=== PATIENT | female | born 1970 | race Caucasian/White ===

== ENCOUNTER 2017-07-03 05:37 | Outpatient (CLI) | payer MEDICARE, MEDICAID ==
[~2017-07-03] VITALS: Ht 158.8 cm; Wt 151.6 kg
[2017-07-03] MEDS ORDERED: PREG300C PO (12:07)
[2017-07-03] MEDS ORDERED: HYDR-3812 PO (12:07)
[2017-07-03] MEDS ORDERED: GLIP10TA13 PO (12:07)
[2017-07-03] MEDS ORDERED: MMT17NA NS (12:07)
[2017-07-03] MEDS ORDERED: TRAZ100T92 PO (12:07)
[2017-07-03] MEDS ORDERED: SIMV40TA PO (12:07)
[2017-07-03] MEDS ORDERED: METO50TA15 PO (12:07)
[2017-07-03] MEDS ORDERED: DAPA10TA PO (12:07)
[2017-07-03] MEDS ORDERED: SERT100T PO (12:07)
[2017-07-03] MEDS ORDERED: RANI150T15 PO (12:07)
[2017-07-03] MEDS ORDERED: ALBU1.25 IH (12:07)
[2017-07-03] MEDS ORDERED: RIZA10TA23 PO (12:07)
[2017-07-03] MEDS ORDERED: LINA5TAB PO (12:07)
[2017-07-03] MEDS ORDERED: BUSP10TA95 PO (12:07)
[2017-07-03] MEDS ORDERED: RT-ALBUINH IH (12:07)
[2017-07-03] MEDS ORDERED: HYDR30TA PO (12:07)
[2017-07-03] MEDS ORDERED: ONDA4TAB8 SL (12:07)
[2017-07-03] MEDS ORDERED: CYCL10TA9 PO (12:07)
[2017-07-03] MEDS ORDERED: MONT10TA21 PO (12:07)
[2017-07-03] MEDS ORDERED: PRAZ2CAP2 PO (12:07)
== END 2017-07-03 12:23 | disposition home or self-care (01) ==
LOC: PREOP 05:37
PROVIDERS: ATTEND Orthopaedic Surgery
DX: Z01.818 Encounter for other preprocedural examination (principal); Z11.2 Encounter for screening for other bacterial diseases; T85.193A Other mechanical complication of implanted electronic neurostimulator, generator, initial encounter
CPT/HCPCS: 87081

== ENCOUNTER 2017-07-05 06:05 | Day surgery (SDC) | payer MEDICARE, MEDICAID ==
[~2017-07-05] VITALS: Ht 158.8 cm; Wt 151.6 kg
[~2017-07-05 06:05] MED LIST: ALBU1.25 IH; BUSP10TA95 PO; CYCL10TA9 PO; DAPA10TA PO; GLIP10TA13 PO; HYDR-3812 PO; HYDR30TA PO; LINA5TAB PO; METO50TA15 PO; MMT17NA NS; MONT10TA21 PO; ONDA4TAB8 SL; PRAZ2CAP2 PO; PREG300C PO; RANI150T15 PO; RIZA10TA23 PO; RT-ALBUINH IH; SERT100T PO; SIMV40TA PO; TRAZ100T92 PO
--- OUTSIDE RECORDS SUMMARY | 2017-07-05 06:22 | XMS REPORT ---
Author SOFÍA [facility] eClinicalWorks Address Unknown Phone Unavailable Care Team Providers Care Stone Rubber Name Role Phone SOFÍA MISHRA CP Unavailable Allergies, Adverse Reactions, Alerts Substance Reaction Event Type sulfa hives Non Drug Allergy penicillin hives Non Drug Allergy Problems Problem Type Condition Code Onset Dates Condition Status Assessment Dental caries K02.9 Active Assessment Dental examination Z01.20 Active Medications Medication Code System Code Instructions Start Date End Date Status Dosage Vitamin D [facility] [address]-67 not defined Hydrocodone-Ibuprofen [facility] [address]-98 not defined Metoprolol & Diet Manage Prod NDC 0 not defined Flexeril NDC 0 not defined Hysingla ER [facility] [address]-38 not defined Maxalt [facility] [address]-21 not defined Ventolin HFA [facility] [address]-49 not defined Effexor NDC 0 not defined Keppra [facility] [address]-78 not defined Lyrica [facility] [address]-66 not defined Tradjenta [facility] [address]-28 not defined Reglan [facility] [address]-64 not defined BusPIRone HCl [facility] [address]-99 not defined Procedures Procedure Coding System Code Date INTRAORL-PERIAPICAL 1 FILM 80996 CPT-4 D0220 Dec 03, 2015 EXTRAC ERUPTED TOOTH/EXPOSED ROOT CPT-4 D7140 Dec 03, 2015 LTD ORAL EVALUATION - PROBLEM FOCUS CPT-4 D0140 Dec 03, 2015 EXTRAC ERUPTED TOOTH/EXPOSED ROOT CPT-4 D7140 Dec 03, 2015 Vital Signs Date/Time: Dec 03, 2015 Blood Pressure Diastolic 69 mmHg Blood Pressure Systolic 127 mmHg Results No Known Results Summary Purpose eClinicalWorks Submission
[2017-07-05] MEDS ORDERED: FAMOTIDINE 20MG/2ML IV (PEPCID) IVP SCH (06:45)
[2017-07-05 07:00] VITALS: BP 153/106
[2017-07-05] MEDS ORDERED: CATHETER FLUSH 10 ML SYR IV PRN (07:00)
[2017-07-05] MEDS ORDERED: CLINDAMYCIN 600 MG/50 ML IVPB 50 ML IV ONE ×2 (07:00→08:30)
[2017-07-05] MEDS ORDERED: MIDAZOLAM 10 MG/2 ML (VERSED) VIAL ONE (07:06)
[2017-07-05] MEDS ORDERED: KETAMINE HCL 100 MG/ML 5 ML VIAL ONE (07:06)
[2017-07-05] MEDS ORDERED: proPOfol 200 MG/20 ML (DIPRIVAN) VIAL IV ONE (07:06)
[2017-07-05] MEDS ORDERED: BUP/EPI 0.5% 1:200,000 (SENSORCAINE) 30 ML VIAL ONE (07:09)
[2017-07-05] MEDS ORDERED: GENTAMICIN 40 MG/ML 2 ML INJ SDV ONE (07:09)
[2017-07-05] MEDS ORDERED: VANCOMYCIN 1000 MG/VIAL ONE (07:09)
[2017-07-05] MEDS ORDERED: ONDANSETRON 4 MG/2 ML (SDV) Z0FRAN ONE (08:13)
[2017-07-05] MEDS ORDERED: fentaNYL INJECTION 100 MCG/2 ML AMP IVP PRN (08:15)
[2017-07-05] MEDS ORDERED: LACTATED RINGERS 1,000 ML IV PRN (08:36)
[2017-07-05 08:45] VITALS: BP 121/72
[2017-07-05] MEDS ORDERED: BACI28.4 TP (09:01)
[2017-07-05 09:15] VITALS: BP 120/63
--- NOTE | 2017-07-05 09:18 | Anesthesia-General Post-Op ---
MAC Patient Condition Mental Status/LOC: Same as Preop Cardiovascular: Satisfactory Nausea/Vomiting: Absent Respiratory: Satisfactory Pain: Controlled Complications: Absent Post Op Complications Complications None Follow Up Care/Instructions Patient Instructions None needed. Anesthesiology Discharge Order Discharge Order Patient is doing well, no complaints, stable vital signs, no apparent adverse anesthesia problems. No complications reported per nursing. VISHAL ALLEN CRNA Jul 05, 2017 09:18
[2017-07-05 09:45] VITALS: BP 118/69
[2017-07-05] MEDS ORDERED: HYDROcodone/APAP 5 MG/325 MG (LORTAB) TAB PO ONE (09:45)
[2017-07-05 09:50] VITALS: BP 118/69
--- NOTE | 2017-07-05 10:59 | OPERATIVE REPORT ---
DATE OF SERVICE: 07/05/2017 SURGEON: Nomi Andrew DO [employer] MANAGER: HAZEL Suazo This is a medically necessary procedure. Assistance was necessary for retraction of vital neurovascular structures, without assistance, procedure would not be possible. PREOPERATIVE DIAGNOSIS: Failure of internal hardware. POSTOPERATIVE DIAGNOSIS: Failure of internal hardware. PROCEDURE PERFORMED: 1. Removal of pulse generator. 2. Placement of new pulse generator. COMPLICATIONS: None. SPECIMENS SENT: None. DRAINS PLACED: None. ANESTHESIA: Local anesthetic with IV sedation. HISTORY OF PRESENT ILLNESS: The patient is a very pleasant morbidly obese 47-year-old female. She did have a pulse generator placed some time ago, which did stop working because the patient and wished to have this replaced. She did get good pain relief with her spinal cord stimulator. She understood the risks and benefits of the surgery, especially considering her weight and her lung status. OPERATION: The patient was identified by name on wrist band in the preoperative holding area. Her operative site was signed and consent was signed. SCDs were placed. Antibiotics were started. She was taken to the operating room theater and placed under light IV sedation. The operative site, which was located over the right lower lumbar area was infiltrated with 0.5% Marcaine with epinephrine. An incision was then made in a transverse fashion. I then dissected my way down through subcutaneous tissue locating the pulse generator, we finally removed and disconnected. I irrigated the wound thoroughly. At this time, I obtained a new pulse generator through the [employer] rep. I connected this and we assess the connection and there was a good connection, therefore we buried the new pulse generator. I thoroughly irrigated the wound, maintained hemostasis and I closed them in usual layered fashion utilizing 0 Vicryl followed by 2-0 Vicryl followed by aplhonse for skin. We applied dressings, placed the patient in the supine position and then taken to the PACU where she awoke without incident. She tolerated the procedure well. The plan at this time is to discharge the patient today. I will see the patient back in 2 weeks. She knows to keep the wound clean and dry, change the dressing daily. return to stimulator on in a week. Job ID: [id number] DocumentID: [id number] Dictated Date: 07/05/2017 08:12:14 Manager Integrity Date: 07/05/2017 10:58:23 Dictated By: NOMI ANDREW DO
== END 2017-07-05 09:50 | disposition home or self-care (01) ==
LOC: SDC 06:05
PROVIDERS: ATTEND Orthopaedic Surgery
DX: T85.193A Other mechanical complication of implanted electronic neurostimulator, generator, initial encounter (principal); I10 Essential (primary) hypertension; E78.5 Hyperlipidemia, unspecified; Z87.891 Personal history of nicotine dependence; J44.9 Chronic obstructive pulmonary disease, unspecified; G40.909 Epilepsy, unspecified, not intractable, without status epilepticus; F32.9 Major depressive disorder, single episode, unspecified; F41.9 Anxiety disorder, unspecified; M79.7 Fibromyalgia; K21.9 Gastro-esophageal reflux disease without esophagitis; E11.9 Type 2 diabetes mellitus without complications; G25.81 Restless legs syndrome; Z79.899 Other long term (current) drug therapy; Z88.0 Allergy status to penicillin; Z88.5 Allergy status to narcotic agent; Z88.7 Allergy status to serum and vaccine